=== PATIENT | male | born 1990 | race Caucasian/White ===

== ENCOUNTER 2016-12-27 09:33 | Emergency (ER) | payer OTHER ==
--- NOTE | 2016-12-27 09:41 | EDM.PDOC ---
ED HPI Trauma - General Chief Complaint: Upper Extremity Injury/Pain Stated Complaint: SMASHED FINGER Source: Reports: Patient History Limitations: Reports: No limitations - History of Present Illness INITIAL COMMENTS - FREE TEXT/NARRATIVE: History of present illness: [] Patient smashed his left ring finger in between 2 empty kegs at work prior to arrival. Review of systems: As per history of present illness and below otherwise all systems reviewed and negative. Past medical history: As per history of present illness and as reviewed below otherwise noncontributory. Surgical history: As per history of present illness and as reviewed below otherwise noncontributory. Social history: No reported history of drug or alcohol abuse. Family history: As per history of present illness and as reviewed below otherwise noncontributory. Physical exam: General: Well developed, well nourished in NAD HEENT: Atraumatic, normocephalic, pupils reactive, negative for conjunctival pallor or scleral icterus, mucous membranes moist, throat clear, neck supple, nontender, trachea midline. Lungs: Clear to auscultation, breath sounds equal bilaterally, chest nontender. Heart: S1S2, regular, negative for clicks, rubs, or JVD. Abdomen: Soft, nondistended, nontender. Negative for masses or hepatosplenomegaly. Negative for costovertebral tenderness. Pelvis: Stable nontender. Genitourinary: Deferred. Rectal: Deferred. Extremities: First laceration at the tip of the left ring finger., negative for cords or calf pain. Neurovascular unremarkable. Neuro: Awake, alert, oriented. Cranial nerves II through XII unremarkable. Cerebellum unremarkable. Motor and sensory unremarkable throughout. Exam nonfocal. Diagnostics: [] X-ray negative for fracture Therapeutics: [] Tetanus status was updated, digital block was given wound was cleaned Impression: [] Crush injury to left ring finger tip with burst laceration Plan: [] Definitive disposition and diagnosis as appropriate pending reevaluation and review of above. Allergies/ADRs: Allergies No Known Allergies Allergy (Verified 12/27/16 09:44) Home Medications: Ambulatory Orders . [No Known Home Meds] 12/27/16 [Confirmed 12/27/16] Review of Systems - Review of Systems Review Of Systems: See Below (See history of present illness) Trauma Exam - Physical Exam Exam: See Below (See history of present illness) Course - Vital Signs Last Recorded V/S: Last Vital Signs Temp 37.0 C 12/27/16 09:44 Pulse 74 12/27/16 09:44 Resp 18 12/27/16 09:44 BP 154/87 H 12/27/16 09:44 Pulse Ox 98 12/27/16 09:44 - Orders/Labs/Meds Orders: Active Orders 24 hr Category Date Time Status Vaccines to be Administered [RC] PER UNIT ROUTINE Care 12/27/16 09:58 Active Meds: Medications Discontinued Medications Generic Name Dose Route Start Last Admin Trade Name Reynold PRN Reason Stop Dose Admin Bupivacaine HCl 10 ml 12/27/16 09:52 12/27/16 10:08 Sensorcaine-Mpf 0.5% INJECT 12/27/16 09:53 10 ml ONETIME ONE Administration Diphtheria/Tetanus/Acell Pertussis 0.5 ml 12/27/16 09:58 12/27/16 10:07 Adacel IM 12/27/16 09:59 0.5 ml .ONCE ONE Administration Lidocaine HCl 20 ml 12/27/16 09:52 12/27/16 10:08 Xylocaine 1% INJECT 12/27/16 09:53 20 ml ONETIME ONE Administration Departure - Departure Time of Disposition: 11:04 Disposition: Home, Self-Care 01 Condition: good Clinical Impression: Laceration of left index finger Referrals: PCP,None [Primary Care Provider] - Forms: ED Department Discharge Additional Instructions: The following information is given to patients seen in the emergency department who are being discharged to home. This information is to outline your options for follow-up care. We provide all patients seen in our emergency department with a follow-up referral. The need for follow-up, as well as the timing and circumstances, are variable depending upon the specifics of your emergency department visit. If you don't have a primary care physician on staff, we will provide you with a referral. We always advise you to contact your personal physician following an emergency department visit to inform them of the circumstance of the visit and for follow-up with them and/or the need for any referrals to a consulting specialist. The emergency department will also refer you to a specialist when appropriate. This referral assures that you have the opportunity for follow-up care with a specialist. All of these measure are taken in an effort to provide you with optimal care, which includes your follow-up. Under all circumstances we always encourage you to contact your private physician who remains a resource for coordinating your care. When calling for follow-up care, please make the office aware that this follow-up is from your recent emergency room visit. If for any reason you are refused follow-up, please contact the [facility] Emergency Department at and asked to speak to the emergency department charge nurse. Tylenol and Motrin for pain sutures out in 7 days Return if symptoms worsen [facility] [address] [place] [id number] - My Orders Last 24 Hours: My Active Orders 12/27/16 09:58 Vaccines to be Administered [RC] PER UNIT ROUTINE - Assessment/Plan Last 24 Hours: My Active Orders 12/27/16 09:58 Vaccines to be Administered [RC] PER UNIT ROUTINE
[2016-12-27] MEDS ORDERED: Bupivacaine 0.5% 10 ML SDV INJECT ONE (09:52)
[2016-12-27] MEDS ORDERED: Lidocaine 1% 20 ML MDV INJECT ONE (09:52)
[2016-12-27] MEDS ORDERED: Diphtheria,Pertussis(Acell),Tetanus Vaccine 0.5 ML Syringe IM ONE (09:58)
--- NOTE | 2016-12-27 10:21 | CR ---
EXAMINATION: Left hand, fourth digit HISTORY: Crush injury COMPARISON: None TECHNIQUE: 3 views FINDINGS/IMPRESSION: There is no acute osseous abnormality, dislocation, or fracture. Bone mineraliz ation and joint spaces appear preserved. There is mild soft tissue swelling and a small defect along the distal aspect of the fourth phalanx.
[2016-12-27 11:15] VITALS: BP 128/70
== END 2016-12-27 11:13 | disposition home or self-care (01) ==
LOC: MW.ED 09:33
DX: S61.215A Laceration without foreign body of left ring finger without damage to nail, initial encounter (principal); W23.1XXA Caught, crushed, jammed, or pinched between stationary objects, initial encounter; Z23 Encounter for immunization
CPT/HCPCS: 64450; 73140-26-F3; 73140-F3; 90471; 90715; 99282; 99283-25